=== PATIENT | male | born 1930 | race Caucasian/White ===

== ENCOUNTER 2017-12-30 09:01 | Emergency (ER) | payer MEDICARE, OTHER ==
[~2017-12-30] VITALS: Ht 172.7 cm; Wt 73.0 kg
[2017-12-30 09:03] VITALS: BP 161/78
--- NOTE | 2017-12-30 09:04 | NUR ---
PT BIBA BLS TO BED 2
--- NOTE | 2017-12-30 09:12 | NUR ---
DR JAY EVALUATING AT BEDSIDE
[2017-12-30] MEDS ORDERED: KETOROLAC 30 MG/ML VIAL IM ONE (09:15)
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
[2017-12-30 10:15] VITALS: BP 157/64
== END 2017-12-30 10:16 | disposition home or self-care (01) ==
LOC: MED 09:01
DX: S16.1XXA Strain of muscle, fascia and tendon at neck level, initial encounter (principal); M54.5 Low back pain; I10 Essential (primary) hypertension; V43.53XA Car driver injured in collision with pick-up truck in traffic accident, initial encounter; Y93.89 Activity, other specified; Y99.8 Other external cause status; Y92.410 Unspecified street and highway as the place of occurrence of the external cause
CPT/HCPCS: 72040; 72100; 96372; 99284; J1885